=== PATIENT | female | born 1970 | race Caucasian/White ===

== ENCOUNTER 2019-09-17 07:13 | Day surgery (SDC) | payer OTHER ==
[2019-09-17 07:38] LABS: Basophils % 1.1 % (0-1.3); Hematocrit 41.2 % (36.0-45.0); MPV 8.2 fL (7.6-11.3); RBC Red Blood Cell Count 4.78 M/uL (3.86-4.86)
[2019-09-17] MEDS ORDERED: NA CHLORIDE 0.9% 1,000 ML ONE (08:00)
[2019-09-17] MEDS ORDERED: CEFAZOLIN/SWI 1gm 1 GM/10 ML SYR ONE (08:00)
[2019-09-17] MEDS: LIDOCAINE 1% MPF 30 ML VIAL ONE ×2 (08:54→09:39)
[2019-09-17] MEDS ORDERED: MIDAZOLAM HCL 2 MG/2 ML INJ ONE (09:20)
[2019-09-17] MEDS ORDERED: propofoL 200 MG/20 ML VIAL IV ONE (09:20)
[2019-09-17] MEDS ORDERED: FENTANYL CITR 100 MCG/2 ML ONE (09:20)
[2019-09-17 09:21] VITALS: O2SAT 97
[2019-09-17] MEDS ORDERED: LIDOCAINE 2% MPF 5 ML VIAL ONE (09:21)
[2019-09-17 12:37] VITALS: BP 144/95; TEMP 97.5
--- NOTE | 2019-09-17 21:18 | OP ---
Date of Procedure: 09/16/2019 Surgeon: Addison Emerson MD Manager Medicaid: ALISHA [place]iedo Preoperative Diagnosis: Left breast cancer. Postoperative Diagnosis: Left breast cancer. Procedure: Removal of left chest Port-A-Cath. Estimated Blood Loss: Minimal. Specimen: Port-A-Cath. Findings: As above. Anesthesia: MAC. Complications: None. Disposition: The patient tolerated the procedure in stable condition, taken to Recovery in good gene ral condition. Procedure In Detail: Patient was brought to the OR and placed in supine position. MAC anesthesia be gun. Patient was prepped and draped in usual sterile fashion. Marcaine 0.5% was infiltrated locally . A 15 blade was used to make a 3 cm incision over the Port-A-Cath. Subcutaneous tissue was divided . Port identified, freed from surrounding tissue with sharp and blunt dissection. Bleeding controll ed with cautery. Port removed, sent to Pathology for identification. Wound irrigated. Bleeding con trolled with cautery. 3-0 chromic used to approximate the subcutaneous tissue and close the skin. S terile dressing was applied. Patient was awakened and taken to the recovery room in good general con dition. Discharge Note: Patient will go to Day Surgery and home when stable. Disposition: Home. Condition: Stable. Discharge Instructions: Resume home medications and diet. Activity as tolerated. No heavy lifting. Remove outer dressing in 2 days. Shower. Keep wound clean and dry. Keep Steri-Strips on at all t imes. Follow up in my office in 2 weeks, call for appointment. Tylenol No. 3 one tablet p.o. q.4 p. r.n. pain. /MODL Voice ID: [id number] Report ID: [id number]
== END 2019-09-17 11:15 | disposition home or self-care (01) ==
LOC: OR 07:13
PROVIDERS: ATTEND Surgery
PROC: 0JPT0WZ Removal of Totally Implantable Vascular Access Device from Trunk Subcutaneous Tissue and Fascia, Open Approach (ICD-10-PCS; principal; 2019-09-17 08:30)
DX: Z45.2 Encounter for adjustment and management of vascular access device (principal); C50.912 Malignant neoplasm of unspecified site of left female breast; J45.909 Unspecified asthma, uncomplicated; K21.9 Gastro-esophageal reflux disease without esophagitis; F32.9 Major depressive disorder, single episode, unspecified; E66.01 Morbid (severe) obesity due to excess calories; F17.200 Nicotine dependence, unspecified, uncomplicated; Z80.0 Family history of malignant neoplasm of digestive organs; Z83.3 Family history of diabetes mellitus; Z82.49 Family history of ischemic heart disease and other diseases of the circulatory system; Z82.3 Family history of stroke
CPT/HCPCS: 85025; 36415; 82947; 88300; 36590; J2704; J2250; J3010; J0690; J7030